=== PATIENT | male | born 1995 | race Caucasian/White ===

== ENCOUNTER 2018-04-16 18:17 | Emergency (ER) | payer BC, OTHER ==
[~2018-04-16] VITALS: Ht 175.2 cm; Wt 83.9 kg
[2018-04-16 18:21] VITALS: BP 139/85
[2018-04-16] MEDS ORDERED: OMNICEF300 MG PO (18:22)
== END 2018-04-16 19:00 | disposition home or self-care (01) ==
LOC: ED 18:17
DX: H60.502 Unspecified acute noninfective otitis externa, left ear (principal); R03.0 Elevated blood-pressure reading, without diagnosis of hypertension

== ENCOUNTER 2019-06-17 17:22 | Emergency (ER) | payer BC, OTHER ==
[~2019-06-17] VITALS: Ht 177.8 cm; Wt 83.5 kg
[~2019-06-17 17:22] MED LIST: OMNICEF300 MG PO
[2019-06-17 17:37] VITALS: BP 128/74
[2019-06-17] MEDS ORDERED: AMOXICILLIN500 M2 PO (18:00)
== END 2019-06-17 18:20 | disposition home or self-care (01) ==
LOC: ED 17:22
DX: H66.92 Otitis media, unspecified, left ear (principal); Z79.2 Long term (current) use of antibiotics

== ENCOUNTER → 2022-01-05 | Day surgery (SDC) | payer MEDICARE, MEDICAID ==
[~2022-01-05] VITALS: Ht 175.2 cm; Wt 79.4 kg
[~2022-01-05] MED LIST changes: +AMOXICILLIN500 M2 PO; +CETIRIZINE HYDR10 MG PO; +GOOD NEIGHBOR L10 MG PO; +IBU800 M2 PO
[2022-01-05 08:50] VITALS: BP 111/78
[2022-01-05 09:30] VITALS: BP 96/39
[2022-01-05 09:45] VITALS: BP 89/45
[2022-01-05 10:00] VITALS: BP 93/53
[2022-01-05 10:13] VITALS: BP 108/74
[2022-01-05 10:42] VITALS: BP 93/53
== END | disposition home or self-care (01) ==
LOC: SDC 01-01 08:45
PROVIDERS: ATTEND Surgery
DX: D22.61 Melanocytic nevi of right upper limb, including shoulder (principal); L92.8 Other granulomatous disorders of the skin and subcutaneous tissue; F84.0 Autistic disorder; F90.9 Attention-deficit hyperactivity disorder, unspecified type; Z79.899 Other long term (current) drug therapy

== ENCOUNTER 2025-01-13 10:55 | Emergency (ER) | payer MEDICARE, MEDICAID ==
[~2025-01-13] VITALS: Ht 175.2 cm; Wt 92.1 kg
[2025-01-13 11:22] VITALS: BP 120/96
[2025-01-13] MEDS ORDERED: VIBRAMYCIN100 MG PO (12:00)
== END 2025-01-13 12:26 | disposition home or self-care (01) ==
LOC: ED 10:55
DX: H66.42 Suppurative otitis media, unspecified, left ear (principal); Z79.899 Other long term (current) drug therapy